=== PATIENT | male | born 1960 | race Caucasian/White ===

== ENCOUNTER 2017-08-07 11:03 | Emergency (ER) | payer BC ==
--- NOTE | 2017-08-07 12:50 | C.PDOC ---
History Of Present Illness Pt c/o right lower back pain. Time Seen by Provider: 08/07/17 11:45 Chief Complaint (Nursing): Back Pain History Per: Patient, Family Onset/Duration Of Symptoms: Days (about 1 week) Current Symptoms Are (Timing): Still Present Quality Of Discomfort: "Pain" Description Of Injury (Context): after lifting heavy boxes Severity: Moderate Associated Symptoms: None Exacerbating Factor(s): Turning, Movement Additional History Per: Prior Records Past Medical History Reviewed: Historical Data, Nursing Documentation, Vital Signs Vital Signs: Last Vital Signs Temp 98.9 F 08/07/17 11:14 Pulse 67 08/07/17 11:14 Resp 20 08/07/17 11:14 BP 134/85 08/07/17 11:14 Pulse Ox 97 08/07/17 11:14 - Medical History PMH: HTN, Hypercholesterolemia Family History: States: Unknown Family Hx - Social History Hx Tobacco Use: No Hx Alcohol Use: No Hx Substance Use: No - Immunization History Hx Tetanus Toxoid Vaccination: No (unknown) Hx Influenza Vaccination: No Review Of Systems Except As Marked, All Systems Reviewed And Found Negative. Constitutional: Negative for: Fever, Weakness Cardiovascular: Negative for: Chest Pain Respiratory: Negative for: Shortness of Breath Gastrointestinal: Negative for: Vomiting, Abdominal Pain Musculoskeletal: Positive for: Back Pain. Negative for: Neck Pain, Leg Pain Skin: Negative for: Rash Neurological: Negative for: Weakness, Numbness Physical Exam - Physical Exam Appears: Non-toxic, No Acute Distress Skin: Normal Color, Warm, Dry, No Rash Head: Atraumatic, Normacephalic Eye(s): bilateral: PERRL, EOMI Neck: Normal ROM, Supple Cardiovascular: Rhythm Regular Respiratory: Normal Breath Sounds, No Accessory Muscle Use Gastrointestinal/Abdominal: Soft, No Tenderness Back: No CVA Tenderness, No Vertebral Tenderness, Paraspinal Tenderness (right lower) Extremity: Normal ROM, No Pedal Edema, No Calf Tenderness Neurological/Psych: Oriented x3, Normal Motor, Normal Sensation ED Course And Treatment O2 Sat by Pulse Oximetry: 97 Pulse Ox Interpretation: Normal Reassessment Condition: Improved Disposition Counseled Patient/Family Regarding: Diagnosis, Need For Followup, Rx Given - Disposition Referrals: Kel Silvestre MD [Medical Doctor] - Disposition: HOME/ ROUTINE Disposition Time: 12:50 Condition: IMPROVED Additional Instructions: Follow up with your doctor for further evaluation and treatment. Return to the ER if you develop weakness, numbness, abdominal pain, trouble urinating, worsening of symptoms or if you have any other concerns. Prescriptions: Naproxen [Naprosyn] 1 tab PO BID PRN #20 tab PRN Reason: Pain Instructions: Low Back Pain (DC) Forms: [employer] (Irish) - Clinical Impression Clinical Impression: Right low back pain
[2017-08-07 13:06] VITALS: BP 135/80; PULSE 70; RESP 18; TEMP 98.7; O2SAT 98
== END 2017-08-07 13:44 | disposition home or self-care (01) ==
LOC: C.ER 11:03
DX: M54.5 Low back pain (principal); E78.00 Pure hypercholesterolemia, unspecified; I10 Essential (primary) hypertension
CPT/HCPCS: 96372; 99283; J1885